=== PATIENT | female | born 1985 | race African-American/Black ===

== ENCOUNTER 2016-07-31 18:56 | Emergency (ER) | payer MEDICAID, OTHER ==
[~2016-07-31] VITALS: Ht 170.2 cm; Wt 80.0 kg
[2016-07-31] MEDS ORDERED: HYDR-3735 GT (19:05)
[2016-08-01] MEDS ORDERED: LORAZEPAM 0.5MG TABLET PO ONE (03:45)
[2016-08-01 05:36] VITALS: BP 121/77
== END 2016-08-01 05:37 | disposition home or self-care (01) ==
LOC: ER 19:41
DX: F41.9 Anxiety disorder, unspecified (principal); F32.9 Major depressive disorder, single episode, unspecified
CPT/HCPCS: 93005; 99284